=== PATIENT | female | born 1955 ===

== ENCOUNTER 2017-05-04 15:05 | Emergency (ER) | payer OTHER, SELFPAY ==
[2017-05-04 15:05] VITALS: BMI 23.8
[2017-05-04 15:22] VITALS: O2SAT 100
[2017-05-04 16:53] VITALS: BP 145/91; PULSE 60; RESP 18; TEMP 98
== END 2017-05-04 16:58 | disposition home or self-care (01) ==
LOC: H.ER 15:05
DX: S63.502A Unspecified sprain of left wrist, initial encounter (principal); W19.XXXA Unspecified fall, initial encounter; Y92.89 Other specified places as the place of occurrence of the external cause

== ENCOUNTER 2017-07-21 11:37 | Emergency (ER) | payer SELFPAY ==
[2017-07-21 11:37] VITALS: BMI 24.1
[2017-07-21 11:43] VITALS: O2SAT 98
[2017-07-21 12:40] LABS: BASO # 0.1 K/uL (0.0-0.2); BASO % 0.9 % (0.0-2.0); EOS # 0.2 K/uL (0.0-0.7); MEAN CELL VOLUME 85.5 fl (81.0-99.0); MEAN CORPUSCULAR HEMOGLOBIN 28.8 pg (27.0-31.0); MEAN CORPUSCULAR HGB CONC 33.7 g/dL (33.0-37.0); MEAN PLATELET VOLUME 7.7 fl (7.2-11.7); MONO # 0.6 K/uL (0.0-0.8); NEUT # 6.8 K/uL (1.8-7.0); NEUT % 70.1 % (50.0-75.0); NRBC % 0.1 % (0.0-0.0); RED CELL DISTRIBUTION WIDTH 13.4 % (11.5-14.5); WHITE BLOOD COUNT 9.7 K/uL (4.8-10.8)
[2017-07-21 12:42] LABS: RBC URINE 1 /hpf (0-3); URINE BILIRUBIN NEGATIVE (NEGATIVE); URINE BLOOD NEGATIVE (NEGATIVE); URINE COLOR YELLOW (YELLOW); URINE GLUCOSE (UA) NEG (Normal); URINE KETONE NEGATIVE (NEGATIVE); URINE LEUKOCYTE ESTERASE NEG Leu/uL (Negative); URINE PROTEIN NEGATIVE (NEGATIVE); URINE UROBILINOGEN 0.2-1.0 mg/dL (0.2-1.0); WBC URINE 1 /hpf (0-5)
[2017-07-21] MEDS ORDERED: Sodium Chloride 0.9% 1,000 ML IV STA (13:02)
[2017-07-21 13:16] LABS: ALB/GLOB RATIO 1.3 (1.0-2.1); ALKALINE PHOSPHATASE 88 U/L (38-126); ALT/SGPT 34 U/L (9-52); AST/SGOT 25 U/L (14-36); BILIRUBIN,TOTAL 0.6 mg/dl (0.2-1.3); BLOOD UREA NITROGEN 13 mg/dl (7-17); CALCIUM 9.2 mg/dL (8.4-10.2); CARBON DIOXIDE 25 mmol/L (22-30); CHLORIDE 107 mmol/L (98-107); GFR AFRICAN-AMERICAN > 60; GLUCOSE,RANDOM 88 mg/dL (65-105); POTASSIUM 4.1 MMOL/L (3.6-5.0); SODIUM 140 mmol/l (132-148); TOTAL PROTEIN 7.2 G/DL (6.3-8.2)
--- NOTE | 2017-07-21 14:33 | ED PDOC ---
HPI: General Adult Time Seen by Provider: 07/21/17 12:11 Chief Complaint (Nursing): Flu-like Symptoms Chief Complaint (Provider): malaise, sore throat, headache History Per: Patient History/Exam Limitations: no limitations Onset/Duration Of Symptoms: Days (2) Current Symptoms Are (Timing): Still Present Severity: Mild Additional Complaint(s): 62yo female c/o flu like symptoms of malaise, body aches, sore throat, headache , denies vomiting/diarrhea, abdominal pain, rash or syncope. +Mild cough but denies SOB Past Medical History Reviewed: Historical Data, Nursing Documentation, Vital Signs Vital Signs: Last Vital Signs Temp 98.3 F 07/21/17 11:39 Pulse 70 07/21/17 11:39 Resp 16 07/21/17 11:39 BP 155/79 H 07/21/17 11:39 Pulse Ox 98 07/21/17 11:39 - Medical History PMH: No Chronic Diseases - Surgical History Surgical History: No Surg Hx - Family History Family History: States: Unknown Family Hx - Living Arrangements Living Arrangements: With Family - Social History Current smoker - smoking cessation education provided: No - Immunization History Hx Tetanus Toxoid Vaccination: No Hx Influenza Vaccination: No Hx Pneumococcal Vaccination: No - Home Medications Home Medications: Ambulatory Orders Medication Instructions Recorded Famotidine [Pepcid] 20 mg PO Q12 #20 tab 06/05/17 Ondansetron [Zofran] 4 mg PO Q8H #10 tab 06/05/17 Ibuprofen [Motrin Tab] 600 mg PO Q6 PRN #15 tab 07/21/17 Oseltamivir [Tamiflu] 75 mg PO BID #10 cap 07/21/17 - Allergies Allergies/Adverse Reactions: Allergies Allergy/AdvReac Type Severity Reaction Status Date / Time No Known Allergies Allergy Verified 05/04/17 15:19 Review of Systems ROS Statement: Except As Marked, All Systems Reviewed And Found Negative Constitutional: Positive for: Fever, Chills, Weakness, Malaise Cardiovascular: Negative for: Chest Pain, Palpitations Respiratory: Positive for: Cough. Negative for: Shortness of Breath Gastrointestinal: Negative for: Nausea, Vomiting Genitourinary Female: Negative for: Dysuria Musculoskeletal: Negative for: Neck Pain, Back Pain Skin: Negative for: Rash, Lesions, Jaundice Neurological: Negative for: Weakness, Numbness Physical Exam - Reviewed Nursing Documentation Reviewed: Yes Vital Signs Reviewed: Yes - Physical Exam Appears: Positive for: Well, Non-toxic, No Acute Distress Head Exam: Positive for: ATRAUMATIC, NORMAL INSPECTION, NORMOCEPHALIC Skin: Positive for: Normal Color, Warm, DRY Eye Exam: Positive for: EOMI, Normal appearance, PERRL ENT: Positive for: Normal ENT Inspection, Pharyngeal Erythema Neck: Positive for: Normal, Painless ROM, Supple Cardiovascular/Chest: Positive for: Regular Rate, Rhythm Respiratory: Positive for: Normal Breath Sounds. Negative for: Decreased Breath Sounds Gastrointestinal/Abdominal: Positive for: Soft. Negative for: Tenderness Back: Positive for: Normal Inspection. Negative for: L CVA Tenderness, R CVA Tenderness Extremity: Positive for: Normal ROM Neurologic/Psych: Positive for: Alert, Oriented. Negative for: Motor/Sensory Deficits - Laboratory Results Result Diagrams: 07/21/17 12:33 07/21/17 12:33 - ECG O2 Sat by Pulse Oximetry: 98 Medical Decision Making Medical Decision Making: Workup for flu like symptoms initiated CXR read by me as no acute infiltrate Labs reviewed, flu swab neg and WBC, chem unremarkable Disposition - Clinical Impression Clinical Impression: Influenza-like symptoms - Patient ED Disposition Is Patient to be Admitted: No Counseled Patient/Family Regarding: Studies Performed, Diagnosis, Need For Followup, Rx Given - Disposition Referrals: [facility] [Outside] Disposition: Routine/Home Disposition Time: 14:36 Condition: STABLE Additional Instructions: Drink plenty of fluids, take medications as directed. Prescriptions: Ibuprofen [Motrin Tab] 600 mg PO Q6 PRN #15 tab PRN Reason: Pain, Moderate (4-7) Oseltamivir [Tamiflu] 75 mg PO BID #10 cap Instructions: Influenza (ED) Forms: [employer] (Wolof) Print Language: UGANDAN
[2017-07-21 15:13] VITALS: BP 110/70; PULSE 72; RESP 20; TEMP 98
--- NOTE | 2017-07-21 15:28 | RAD ---
HISTORY: fever COMPARISON: Chest radiographs 10/13/2016. TECHNIQUE: Chest PA and lateral FINDINGS: LUNGS: No active pulmonary disease. PLEURA: No significant pleural effusion identified. No pneumothorax apparent. CARDIOVASCULAR: Normal. OSSEOUS STRUCTURES: No significant abnormalities. VISUALIZED UPPER ABDOMEN: Normal. OTHER FINDINGS: None. IMPRESSION: No interval acute cardiopulmonary disease appreciated.
== END 2017-07-21 15:14 | disposition home or self-care (01) ==
LOC: H.ER 11:37
DX: J02.9 Acute pharyngitis, unspecified (principal); R53.81 Other malaise; R51 Headache; R05 Cough
CPT/HCPCS: 71020; 80053; 81003; 85025; 87804; 96365; 99283; J1885; J7040

== ENCOUNTER 2018-02-16 21:18 | Emergency (ER) | payer SELFPAY ==
[2018-02-16 21:18] VITALS: BMI 24.1
[2018-02-16 21:26] VITALS: BP 180/81; PULSE 70; RESP 18; TEMP 98.7; O2SAT 97
--- NOTE | 2018-02-16 22:16 | ED PDOC ---
HPI: Headache Time Seen by Provider: 02/16/18 21:29 Chief Complaint (Nursing): Headache Chief Complaint (Provider): vision changes to rt eye and headache History Per: Patient, Family History/Exam Limitations: no limitations Onset/Duration Of Symptoms: Mins (x20 ) Current Symptoms Are (Timing): Still Present Associated Symptoms: Blurred Vision Additional Complaint(s): Amparo Morillo is a 63 year old female, with no significant past medical history, who presents to the emergency department accompanied by daughter complaining of a frontal headache associated with blurry vision to right eye onset x20 min [employer]. Patient states she was watching TV when she suddenly developed a headache and began seeing squiggly-like figures from her right eye. She denies similar symptoms in the past. She denies any trauma, eye pain or other medical complaints. PMD: None provided. Past Medical History Reviewed: Historical Data, Nursing Documentation, Vital Signs Vital Signs: Last Vital Signs Temp 98.7 F 02/16/18 21:20 Pulse 70 02/16/18 21:20 Resp 18 02/16/18 21:20 BP 180/81 H 02/16/18 21:20 Pulse Ox 97 02/16/18 21:20 - Medical History PMH: No Chronic Diseases - Surgical History Surgical History: No Surg Hx - Family History Family History: States: Unknown Family Hx - Social History Current smoker - smoking cessation education provided: No Alcohol: None Drugs: Denies - Immunization History Hx Tetanus Toxoid Vaccination: No Hx Influenza Vaccination: No Hx Pneumococcal Vaccination: No - Home Medications Home Medications: Ambulatory Orders Medication Instructions Recorded Famotidine [Pepcid] 20 mg PO Q12 #20 tab 06/05/17 Ondansetron [Zofran] 4 mg PO Q8H #10 tab 06/05/17 Ibuprofen [Motrin Tab] 600 mg PO Q6 PRN #15 tab 07/21/17 Oseltamivir [Tamiflu] 75 mg PO BID #10 cap 07/21/17 - Allergies Allergies/Adverse Reactions: Allergies Allergy/AdvReac Type Severity Reaction Status Date / Time No Known Allergies Allergy Verified 05/04/17 15:19 Review of Systems ROS Statement: Except As Marked, All Systems Reviewed And Found Negative Eyes: Positive for: Vision Change (right eye blurry vision). Negative for: Pain Neurological: Positive for: Headache Physical Exam - Reviewed Nursing Documentation Reviewed: Yes Vital Signs Reviewed: Yes - Physical Exam Appears: Positive for: Non-toxic, No Acute Distress Head Exam: Positive for: ATRAUMATIC, NORMAL INSPECTION, NORMOCEPHALIC Skin: Positive for: Normal Color, Warm, Dry Eye Exam: Positive for: Normal appearance, EOMI, PERRL, Other (20/30 vision on right eye. No edema or external abnormality). Negative for: Conjunctival injection Neck: Positive for: Painless ROM Cardiovascular/Chest: Positive for: Regular Rate, Rhythm. Negative for: Murmur Respiratory: Positive for: Normal Breath Sounds. Negative for: Respiratory Distress Gastrointestinal/Abdominal: Positive for: Normal Exam, Soft. Negative for: Tenderness Extremity: Positive for: Normal ROM (upper and lower extremities). Negative for : Deformity, Swelling Neurologic/Psych: Positive for: Alert, Oriented. Negative for: Motor/Sensory Deficits - ECG O2 Sat by Pulse Oximetry: 97 (RA) Pulse Ox Interpretation: Normal Medical Decision Making Medical Decision Making: Time: 21:29 A/P: 63 y/o female presents with vision changes. Headache is mild currently however vision changes remain. Based on patient's history likely suffering from retinal detachment Plan: --Head w/o contrast [CT] --Orbits/ Facials w/o contrast [CT] 22:40 -Case discussed with Dr. Mosqueda who states no acute intervention is necessary in ED. Patient is advised to follow up with him. 22:46 CT Orbits FINDINGS: Orbits: The globes are symmetric and normal in appearance. No intraconal or extraconal mass. The extraocular muscles are symmetric and normal in size. Sinuses: Mucosal thickening of the right maxillary sinus with small inferior maxillary sinus retention cyst. Thickening of the left frontal sinus with a small amount of internal fluid extending into the left frontoethmoidal recess. Trace mucosal thickening of the ethmoid sinuses, likely within normal limits. Mastoid air cells: Small left mastoid effusion. The right mastoid air cells are clear. Auditory system: Normal appearance of the external auditory canals. Bones/joints: The lamina papyracea are intact. No fracture. Soft tissues: Normal appearance of the superficial soft tissues. Vasculature: Atherosclerotic vascular calcification of the V4 segment vertebral and parasellar carotid arteries. Brain: Normal appearance of the imaged brain parenchyma. Sella: Partial empty sella. Dental: The patient is partially edentulous. IMPRESSION: 1. Normal noncontrast CT appearance of the orbits. 2. Mild left frontal sinus disease with a small amount of fluid which may represent acute or chronic sinusitis. Chronic appearing retention cyst within the right maxillary sinus. 3. Other chronic findings as detailed above. 22:52 CT Head FINDINGS: Brain: There is no evidence of intracranial hemorrhage. Increased extra-axial CSF space along the superior frontal and parietal lobes. No significant associated cortical volume loss. The cortical/white matter interfaces are preserved throughout the brain. There is no intracranial mass or mass effect. Midline shift: No midline shift. Ventricles: The lateral ventricles appear somewhat small in size. Bones/joints: No fracture. The calvarium and skull base are intact. Soft tissues: Normal. Sinuses: Trace mucosal thickening of the ethmoid sinuses, likely within normal limits. Partial opacification of the left frontal sinus extending into the frontoethmoidal recess. Mastoid air cells: Left mastoid effusion. Sella: Partial empty sella. IMPRESSION: 1. No acute intracranial abnormality. 2. Partial empty sella with somewhat small appearance of the lateral ventricles. While this may represent an asymptomatic variant, it can also occasionally also be seen in the setting of idiopathic intracranial hypertension. Correlate with clinical parameters and consider followup consultation or imaging evaluation as indicated. 3. Small left mastoid effusion. 4. Fluid within the left frontal sinus which may represent acute and/or chronic sinusitis. 2250 Patient appearing well, BP 140/90, ambulatory, steady gait. Advised importance of followup tomorrow at 8AM with Dr. Mosqueda ----- Scribe Attestation: Documented by Madhu Ozuna, acting as a scribe for Lázaro Power MD. Provider Scribe Attestation: All medical record entries made by the Scribe were at my direction and personally dictated by me. I have reviewed the chart and agree that the record accurately reflects my personal performance of the history, physical exam, medical decision making, and the department course for this patient. I have also personally directed, reviewed, and agree with the discharge instructions and disposition. Disposition - Clinical Impression Clinical Impression: Vision blurred - Disposition Referrals: George Mosqueda MD [Staff Provider] - Disposition: Routine/Home Disposition Time: 22:50 Condition: STABLE Additional Instructions: SEE DR. MOSQUEDA IN THE OFFICE TOMORROW AT 8AM. Instructions: [facility] [facility] Forms: [employer] (American) Print Language: MACEDONIAN
--- NOTE | 2018-02-17 09:55 | CT ---
Date of service: 02/16/2018 PROCEDURE: CT HEAD WITHOUT CONTRAST. HISTORY: [place] with vision changes COMPARISON: None available. TECHNIQUE: Axial computed tomography images were obtained through the head/brain without intravenous contrast. Radiation dose: Total exam DLP = 79.24 mGy-cm. This CT exam was performed using one or more of the following dose reduction techniques: Automated exposure control, adjustment of the mA and/or kV according to patient size, and/or use of iterative reconstruction technique. FINDINGS: HEMORRHAGE: No intracranial hemorrhage. BRAIN: Handy-white matter differentiation is preserved. There is no mass, mass effect or abnormal extra-axial fluid collection. There is a partially empty sella. VENTRICLES: Small lateral ventricles. No hydrocephalus. CALVARIUM: The skull base and calvarium are normal. PARANASAL SINUSES: Mild mucosal thickening in the left frontal sinus. The remaining included paranasal sinuses are predominantly clear. MASTOID AIR CELLS: There is fluid in the left mastoid tip. The right mastoid air cells are clear. OTHER FINDINGS: None. IMPRESSION: 1. No acute intracranial abnormality. 2. Partially empty sella and small lateral ventricles can be seen in the setting of idiopathic intracranial hypertension for which clinical correlation and follow-up is advised. Alternatively, partially empty sella can be an anatomic variant. 3. Small left mastoid effusion. A preliminary report was provided by [employer] [facility].
--- NOTE | 2018-02-17 10:28 | CT ---
Date of service: 02/16/2018 PROCEDURE: CT ORBITS WITHOUT CONTRAST. HISTORY: [place] with vision changes, R eye decreased vision COMPARISON: None available. TECHNIQUE: Axial CT images of the orbits were obtained. Coronal and sagittal reformats were generated. Radiation dose: Total exam DLP = 563.30 mGy-cm. This CT exam was performed using one or more of the following dose reduction techniques: Automated exposure control, adjustment of the mA and/or kV according to patient size, and/or use of iterative reconstruction technique. FINDINGS: RIGHT ORBIT: RIGHT BONY ORBIT: Normal. RIGHT INTRAORBITAL STRUCTURES: Globe: Normal. Extraocular muscles: Normal. Post septal space: Normal. Optic Nerve: Normal. Lacrimal Apparatus: Normal. RIGHT PRESEPTAL SOFT TISSUES: Normal. LEFT ORBIT: LEFT BONY ORBIT: Normal. LEFT INTRAORBITAL STRUCTURES: Globe: Normal. Extraocular muscles: Normal. Post septal space: Normal Optic Nerve: Normal. . Lacrimal Apparatus: Normal. LEFT PRESEPTAL SOFT TISSUES: Normal. OTHER: There is a retention cyst/ polyp in the right maxillary alveolus. There are aerosolized secretions in the left frontal sinus. IMPRESSION: 1. No acute abnormality in the orbits. 2. Aerosolized secretions in the left frontal sinus may represent acute sinusitis in the appropriate clinical setting. A preliminary report was provided by [employer] [facility].
== END 2018-02-16 23:11 | disposition home or self-care (01) ==
LOC: H.ER 21:18
DX: H53.8 Other visual disturbances (principal)

== ENCOUNTER 2018-03-11 19:57 | Emergency (ER) | payer SELFPAY ==
[2018-03-11 19:58] VITALS: BMI 24.1
[2018-03-11 20:42] VITALS: BP 151/87; PULSE 70; RESP 18; TEMP 98.8; O2SAT 97
--- NOTE | 2018-03-11 21:29 | ED PDOC ---
HPI: Eye Injury/Pain Time Seen by Provider: 03/11/18 21:02 Chief Complaint (Nursing): Eye Problem Chief Complaint (Provider): bright spots in left eye History Per: Patient Onset/Duration Of Symptoms: Mins (15-20 minutes) Current Symptoms Are (Timing): Still Present Injury To Eye?: No Additional Complaint(s): 03/11/2018 21:20 63 year old female, with no significant past medical history, who presents to the ED complaining of flashing in the left eye x 15-20 minutes [employer]IENTS [employer]SP[employer]TER. Patient states she had a similar symptoms in the left eye 20 days ago. She had a procedure at [facility] with Dr. Mosqueda but never went back for a follow up appointment. Patient denies any vision change, blurriness, blindness, or any other complaints. Past Medical History Reviewed: Historical Data, Nursing Documentation, Vital Signs Vital Signs: Last Vital Signs Temp 98.8 F 03/11/18 20:39 Pulse 70 03/11/18 20:39 Resp 18 03/11/18 20:39 BP 151/87 H 03/11/18 20:39 Pulse Ox 97 03/11/18 20:39 - Family History Family History: States: Unknown Family Hx - Immunization History Hx Tetanus Toxoid Vaccination: No Hx Influenza Vaccination: No Hx Pneumococcal Vaccination: No - Home Medications Home Medications: Ambulatory Orders Medication Instructions Recorded Famotidine [Pepcid] 20 mg PO Q12 #20 tab 06/05/17 Ondansetron [Zofran] 4 mg PO Q8H #10 tab 06/05/17 Ibuprofen [Motrin Tab] 600 mg PO Q6 PRN #15 tab 07/21/17 Oseltamivir [Tamiflu] 75 mg PO BID #10 cap 07/21/17 - Allergies Allergies/Adverse Reactions: Allergies Allergy/AdvReac Type Severity Reaction Status Date / Time No Known Allergies Allergy Verified 05/04/17 15:19 Review of Systems ROS Statement: Except As Marked, All Systems Reviewed And Found Negative Constitutional: Negative for: Fever Eyes: Positive for: Other (flashin in bilateral eyes). Negative for: Pain, Vision Change Physical Exam - Reviewed Nursing Documentation Reviewed: Yes Vital Signs Reviewed: Yes - Physical Exam Appears: Positive for: Well, Non-toxic, No Acute Distress Head Exam: Positive for: ATRAUMATIC, NORMAL INSPECTION, NORMOCEPHALIC Skin: Positive for: Normal Color, Warm, DRY Eye Exam: Positive for: Normal appearance, EOMI, PERRL, Other (PE limited due to pupil constriction; vision 20/25 bilaterally). Negative for: Conjunctival injection, Scleral icterus ENT: Positive for: Normal ENT Inspection Neck: Positive for: Normal Respiratory: Negative for: Accessory Muscle Use, Respiratory Distress Back: Positive for: Normal Inspection Extremity: Positive for: Normal ROM Neurologic/Psych: Positive for: Alert, Oriented - ECG O2 Sat by Pulse Oximetry: 97 Medical Decision Making Medical Decision Makin03/11/2018 21:20 Impression: 63 year old female presents to the ED c/o flashing in both eyes x 15-20 minutes. ' Progress Notes: Case discussed with Dr. Mosqueda, who is aware of case and remembers patient. States pt had a vitreous hemorrhage in the left eye, where he performed a laser procedure. States patient can follow up with him on Tuesday. Disposition - Clinical Impression Clinical Impression: Vision blurred - Disposition Referrals: George Mosqueda MD [Staff Provider] - Disposition: Routine/Home Disposition Time: 21:30 Condition: GOOD Forms: [facility] (Sudanese) Print Language: ICELANDIC
== END 2018-03-11 21:53 | disposition home or self-care (01) ==
LOC: H.ER 19:57
DX: H53.8 Other visual disturbances (principal)